=== PATIENT | female | born 1965 | race Caucasian/White ===

== ENCOUNTER 2018-01-11 03:14 | Inpatient (IN) | payer MEDICARE, MEDICAID ==
[~2018-01-11] VITALS: Ht 147.3 cm; Wt 75.4 kg
[~2018-01-11 03:14] MED LIST: ALAVERT10 MG PO; ALLEGRA ALLERG180 MG PO; BONINE25 MG PO; CALCIUM 600 +1 EAC1 PO; CALTRATE-600 W1 EACH PO; CARAFATE 1 GM TA1 G1 PO; CIPRO500 MG PO; CLARITIN10 MG PO; FLAGYL500 MG PO; KEFLEX500 MG PO; LOVASTAT20 PO; LOVASTATIN 20 M20 MG PO; NAPROSYN500 MG PO; NORCO 5-325 TA1 EAC1 PO; OMEPRAZOLE 20 M20 M1 PO; PRILOSEC40 MG PO; SYNTHROID100 MC1 PO; TIROSINT100 MCG PO
[2018-01-11 03:16] VITALS: BP 121/50
[2018-01-11 04:08] LABS: ABSOLUTE LYMPHOCYTES 0.6 thou/uL (0.8-5.3); ABSOLUTE MONOCYTES 0.5 thou/uL (0.0-1.2); ABSOLUTE NEUTROPHILS 4.2 thou/uL (1.6-8.1); BASOPHILS 0.9 %; EOSINOPHILS 0.6 %; HEMATOCRIT 38.4 % (37.0-47.0); HEMOGLOBIN 13.2 gm/dL (12.0-15.0); LYMPHOCYTES 11.1 %; MCH 32.3 pg (26.0-34.0); MCHC 34.4 g/dL (28.0-37.0); MONOCYTES 9.6 %; MPV 7.1 fl. (7.2-11.1); NUCLEATED RBCS 0 /100WBC; PLATELET COUNT* 208 thou/uL (150-400); POLYS 77.8 %; RBC 4.09 mil/uL (4.20-5.00); RDW-CV 13.6 % (10.5-14.5); WBC 5.4 thou/uL (4.0-11.0)
[2018-01-11 04:21] LABS: CALCIUM 7.8 mg/dL (8.5-10.1); CREATININE 0.8 mg/dL (0.6-1.3); POTASSIUM 3.3 mmol/L (3.5-5.1)
[2018-01-11 04:25] LABS: ALBUMIN 2.9 g/dL (3.4-5.0); TOTAL BILIRUBIN 0.3 mg/dL (<0.1-1.0); TOTAL PROTEIN 7.5 g/dL (6.4-8.2)
[2018-01-11] MEDS ORDERED: LOMOTIL TABLET1 EACH PO (04:33)
[2018-01-11] MEDS ORDERED: ZOFRAN4 MG PO (04:33)
[2018-01-11 05:39] VITALS: BP 144/80
--- NOTE | 2018-01-11 07:37 | NUR ---
PT ARRIVED ON UNIT FROM ER. PT ORIENTED TO ROOM, CALL LIGHT SHOWN, FALL AGREEMENT WENT OVER. PT AND PT'S MOTHER STATED UNDERSTANDING. ASSESSMENT DOCUMENTED, INFORMATION FOR ASSESSMENT RECIEVED FROM PT'S MOTHER. PT'S MOTHER STATES THAT HER AND THE PATIENT HAVE BOTH BEEN SICK WITH NAUSEA AND DIARRHEA SINCE Monday. REPORT GIVEN TO DAY SHIFT NURSE.
[2018-01-11 08:25] VITALS: BP 94/52
[2018-01-11 16:37] VITALS: BP 116/41
--- NOTE | 2018-01-11 18:23 | NUR ---
PT HAS HAD MULTIPLE WATERY BM. STOOL SAMPLE COLLECTED. PT TOLERATES DIET WITHOUT INCREASE PAIN OR NAUSEA. PT UP WITH SBA TO BATHROOM. ABLE TO PEMA ENEEDS KNOWN, CALL LIGHT IN REACH
[2018-01-12 00:01] VITALS: BP 113/49
[2018-01-12 04:30] LABS: ABSOLUTE EOSINOPHILS 0.1 thou/uL (0.0-0.7); ABSOLUTE MONOCYTES 0.5 thou/uL (0.0-1.2); ABSOLUTE NEUTROPHILS 1.8 thou/uL (1.6-8.1); BASOPHILS 1.4 %; EOSINOPHILS 3.6 %; HEMATOCRIT 34.9 % (37.0-47.0); HEMOGLOBIN 11.9 gm/dL (12.0-15.0); LYMPHOCYTES 29.2 %; MCH 32.4 pg (26.0-34.0); MCHC 34.2 g/dL (28.0-37.0); MCV 94.6 fL (80.0-100.0); MONOCYTES 15.1 %; MPV 7.3 fl. (7.2-11.1); NUCLEATED RBCS 0 /100WBC; PLATELET COUNT* 198 thou/uL (150-400); POLYS 50.7 %; RBC 3.68 mil/uL (4.20-5.00); RDW-CV 13.6 % (10.5-14.5); WBC 3.6 thou/uL (4.0-11.0)
[2018-01-12 04:56] LABS: CALCIUM 7.5 mg/dL (8.5-10.1); CREATININE 0.7 mg/dL (0.6-1.3); POTASSIUM 3.7 mmol/L (3.5-5.1)
--- NOTE | 2018-01-12 05:09 | NUR ---
PT SLEPT ON AND OFF THIS SHIFT. ASSESSMENT DOCUMENTED. MEDS GIVEN PER E-DEC. IV PATENT. PT HAD ONE BOWEL MOVEMENT OVER NIGHT. NO REPORTS OF PAIN OR NAUSEA. PT TOLERATED EATING SEVERAL POPCICLES THIS SHIFT. WILL CONTINUE WITH PLAN OF CARE.
[2018-01-12 07:30] VITALS: BP 95/40
--- NOTE | 2018-01-12 12:23 | NUR ---
INITIAL ASSESSMENT: Pt evaluated for d/c planning needs. Reviewed chart and spoke with nurse and pt. Pt has history of Downs Syndrome. Pt lives at home with her mother and sister. Pt was independent with ADL's and has walker at home. Pt plans on returning home on d/c from hospital. No d/c needs identified.
--- NOTE | 2018-01-12 12:29 | NUR ---
RESUMED CARE OF PT. ASSESSMENT DOCUMENTED. MEDS GIVEN PER E-MAR. IV PATENT. PT UP WALKING IN ROOM. NO REPORTS OF PAIN OR NAUSEA. REPORT GIVEN TO NURSE TAKING OVER CARE OF PATIENT.
[2018-01-12 14:59] VITALS: BP 95/40
--- NOTE | 2018-01-12 15:04 | NUR ---
ASSUMED CARES OF PT AT 1130. PT IN BED, MOTHER AT SIDE. PT A&O X4, DOWN SYNDROME PT. MEDS TAKEN PO CRUSHED IN APPLESAUCE. MOTHER HELPED GIVE HER DAUGHTER A SHOWER. IV REMOVED. PT CLEARED TO D/C HOME WITH MOTHER. REPORT TO ONCOMING NURSE AT 1440.
--- NOTE | 2018-01-12 15:47 | NUR ---
ASSUMED CARE OF PATIENT AT 1400. ASSESSMENT COMPLETED. VSS ON ROOM AIR. PATIENT ALERT AND ORIENTED. PATIENT DISCHARGED AT 1540 WITH HER MOTHER. ALL PERSONAL BELONGINGS LEFT WITH PATIENT. PRESCRIPTIONS AND SICHARGE INFORMATION SENT WITH PATIENT UPON DISCHARGE.
== END 2018-01-12 15:40 | disposition home or self-care (01) | DRG 641 ==
LOC: M.ERS 03:14 → M.3W 05:17 → M.TBA-ER 05:17 → M.3W 05:56
PROVIDERS: Emergency Medicine; Internal Medicine; ADMIT Internal Medicine
DX: E86.0 Dehydration (principal); E44.1 Mild protein-calorie malnutrition; R65.10 Systemic inflammatory response syndrome (SIRS) of non-infectious origin without acute organ dysfunction; A08.4 Viral intestinal infection, unspecified; E87.1 Hypo-osmolality and hyponatremia; Q90.9 Down syndrome, unspecified; E03.9 Hypothyroidism, unspecified; E78.5 Hyperlipidemia, unspecified; D72.819 Decreased white blood cell count, unspecified; K21.9 Gastro-esophageal reflux disease without esophagitis; M41.9 Scoliosis, unspecified; Z68.34 Body mass index [BMI] 34.0-34.9, adult; Z87.81 Personal history of (healed) traumatic fracture; Z79.899 Other long term (current) drug therapy; Z88.0 Allergy status to penicillin; Z88.8 Allergy status to other drugs, medicaments and biological substances; Z82.49 Family history of ischemic heart disease and other diseases of the circulatory system

== ENCOUNTER → 2019-02-04 | Outpatient (CLI) | payer MEDICARE, MEDICAID ==
[~2019-02-04] MED LIST changes: +LOMOTIL TABLET1 EACH PO; +ZOFRAN4 MG PO
== END ==
LOC: M.ULTRA 15:57
DX: M79.89 Other specified soft tissue disorders (principal); M79.604 Pain in right leg

== ENCOUNTER → 2020-12-01 | Outpatient (CLI) | payer MEDICARE, MEDICAID ==
--- NOTE | 2020-12-01 14:06 | 2DMMODE ---
[place] [address] 2 D/M-MODE ECHOCARDIOGRAM Name: KASSANDRAAMADOURashadPEREZ J Room: [facility]#: [id number] Admission: 12/01/20 Attend Phys: KATERIN Chavez Discharge: Date of : 63 Date of Service: 12/01/20 1406 Report #: [id number] THIS REPORT FOR: cc: Ana María Brown Tami FNP Liston, Michael J. MD [facility] ~ APPROVED REPORT Study performed: 12/01/2020 12:47:51 EXAM: Comprehensive 2D, Doppler, and color-flow Echocardiogram Patient Location: Out-Patient BSA: 1.55 HR: 58 bpm Other Information Study Quality: Technically Limited Technically limited study due to uncooperative patient, inability to position patient. Indications Hx. of heart surgery? 2D Dimensions IVSd: 9.19 (7-11mm) LVOT Diam: 19.57 (18-24mm) LVDd: 38.16 mm PWd: 8.87 (7-11mm) Ascending Ao: 23.15 (22-36mm) LVDs: 24.31 (25-40mm) Aortic Root: 22.52 mm Aortic Valve LVOT Max P.07 mmHg LVOT Mean P.87 mmHg LVOT Max V: 0.88 m/s LVOT Mean V: 0.65 m/s LVOT V1 VTI: 20.46 cm Mitral Valve E/A Ratio: 1.05 MV Decel. Time: 169.90 ms MV E Max Jorge.: 0.66 m/s MV PHT: 49.27 [place] [address] 2 D/M-MODE ECHOCARDIOGRAM Name: LATOYARashadPEREZ [place] Room: [facility]#: [id number] Admission: 12/01/20 Attend Phys: KATERIN Chavez Discharge: Date of : 63 Date of Service: 12/01/20 1406 Report #: [id number] MVA (PHT): 4.47 cm2 Pulmonary Valve PV Peak Jorge.: 1.01 m/s PV Peak Gr.: 4.12 mmHg Tricuspid Valve RAP Estimate: 5.00 mmHg TR Peak Gr.: 27.11 mmHg RVSP: 32.11 mmHg PA Pressure: 32.11 mmHg Left Ventricle The left ventricle is normal size. There is normal LV segmental wall motion. There is normal left ventricular wall thickness. Left ventricular systolic function is normal. LVEF is 55-60%. Aortic Valve The aortic valve is normal in structure. Mitral Valve The mitral valve is normal in structure. Mild mitral regurgitation. Tricuspid Valve The tricuspid valve is normal in structure. Mild tricuspid regurgitation. The RVSP is 30-35 mmHg. Pulmonic Valve The pulmonary valve is normal in structure. Great Vessels The aortic root is normal in size. Pericardium There is no pericardial effusion. <Conclusion> The left ventricle is normal size. There is normal left ventricular wall thickness. Left ventricular systolic function is normal. LVEF is 55-60%. [place] [address] 2 D/M-MODE ECHOCARDIOGRAM Name: PEREZ SCHNEIDER Room: [facility]#: [id number] Admission: 12/01/20 Attend Phys: KATERIN Chavez Discharge: Date of : 63 Date of Service: 12/01/201405 Report #: [id number] Mild tricuspid regurgitation. The RVSP is 30-35 mmHg. <ELECTRONICALLY SIGNED> By: Ronn Shrestha MD, FACC 12/01/201405 05 05 Ronn Shrestha MD, FACC /INF
== END ==
LOC: M.CRD 12:16
PROVIDERS: ATTEND Nurse Practitioner Family
DX: I08.0 Rheumatic disorders of both mitral and aortic valves (principal)